=== PATIENT | female | born 1965 | race Caucasian/White ===

== ENCOUNTER → 2023-01-14 | Outpatient (CLI) | payer OTHER ==
[2023-01-14 19:03] LABS: U Amphetamine Screen Not Detected; U Barbituate Screen Not Detected; U Benzodiazapine Screen Not Detected; U Buprenorphine Screen Not Detected; U Cannabinoids Screen DETECTED; U Cocaine Screen Not Detected; U Methadone Screen Not Detected; U Methamphetamine Screen Not Detected; U Opiates Screen Not Detected; U Oxycodone Screen Not Detected; U Phencyclidine Screen Not Detected; U Propoxyphene Screen Not Detected
[2023-01-23 06:12] LABS: CARBOXY-THC 136 (.)
== END ==
LOC: LAB SHORT 13:00 → LAB 13:00
PROVIDERS: Family Medicine
DX: Z51.81 Encounter for therapeutic drug level monitoring (principal)

== ENCOUNTER → 2023-02-05 | Outpatient (CLI) | payer OTHER ==
[2023-02-10 13:09] LABS: HPV 16 Negative (Negative); HPV 18 Negative (Negative); HPV OTHER HR TYPES Negative (Negative)
== END | disposition home or self-care (01) ==
LOC: LAB SHORT 14:36 → LAB 14:36
PROVIDERS: Family Medicine
DX: Z12.4 Encounter for screening for malignant neoplasm of cervix (principal)
CPT/HCPCS: 87624; G0145

== ENCOUNTER → 2023-03-26 | Outpatient (CLI) | payer OTHER ==
[2023-03-26 10:19] LABS: Influenza A, PCR NEGATIVE (NEGATIVE); Influenza B, PCR NEGATIVE (NEGATIVE); Resp Syncytial Virus, PCR NEGATIVE (NEGATIVE)
[2023-03-26 10:44] LABS: SARS-Cov-2 (COVID-19) PCR, MMC POSITIVE (NEGATIVE)
== END | disposition home or self-care (01) ==
LOC: LAB 08:54 → LAB SHORT 08:54
PROVIDERS: Family Medicine
DX: R50.9 Fever, unspecified (principal)
CPT/HCPCS: 0241U

== ENCOUNTER 2025-01-30 06:51 | Emergency (ER) | payer BC ==
[~2025-01-30] VITALS: Ht 152.4 cm; Wt 44.9 kg
[~2025-01-30 06:51] MED LIST: Naprosyn500 MG PO; TRAM50 PO
[2025-01-30] MEDS ORDERED: Albuterol 2.5 MG/3 ML VIAL INH ONE (07:10)
[2025-01-30] MEDS ORDERED: MethylPREDNISolone Sod Succ 125 MG Vial IV ONE (07:10)
[2025-01-30 07:51] LABS: Albumin, Blood 3.3 g/dL (3.4-5.0); Albumin/Globulin Ratio 0.8 (0.8-1.8); Bilirubin, Total 0.3 mg/dL (0.1-1.0); Bun/Creatinine Ratio 12.7 (12.0-20.0); Calcium, Blood 8.9 mg/dL (8.5-10.1); Creatinine, Blood 0.55 mg/dL (0.40-1.00); Potassium, Blood 4.3 mmol/L (3.5-5.5); Total Protein, Blood 7.3 g/dL (6.4-8.2)
[2025-01-30 08:09] LABS: BASOPHILS ABSOLUTE AUTO 0.07 K/mm3 (0.00-0.23); BASOPHILS PERCENT AUTO 1 % (0-2); EOSINOPHILS PERCENT AUTO 1 % (0-6); Hematocrit 38.7 % (33.0-51.0); Hemoglobin 13.3 g/dL (11.5-16.0); IMMATURE GRAN ABSOLUTE AUTO 0.04 K/mm3 (0.00-0.10); IMMATURE GRAN PERCENT AUTO 0 % (0-1); LYMPHOCYTES PERCENT AUTO 27 % (21-46); MONOCYTES ABSOLUTE AUTO 0.42 K/mm3 (0.16-1.47); MONOCYTES PERCENT AUTO 4 % (4-13); Mean Corpuscular HGB 32.1 pg (26.0-34.0); Mean Corpuscular HGB Conc 34.4 g/dL (31.5-36.5); Mean Corpuscular Volume 94 fL (80-100); Mean Platelet Volume 8.8 fL (9.1-12.4); NEUTROPHILS ABSOLUTE AUTO 6.71 K/mm3 (1.96-9.15); NEUTROPHILS PERCENT AUTO 67 % (41-73); Platelet Count 569 K/mm3 (150-400); RDW Coefficient Variation 13.2 % (11.7-14.2); RDW Standard Deviation 45.3 fL (35.1-46.3); Red Blood Cell Count 4.14 M/mm3 (3.80-5.20); White Blood Cell Count 10.04 K/mm3 (4.00-11.30)
[2025-01-30] MEDS ORDERED: ALBU90OI INH (09:10)
[2025-01-30] MEDS ORDERED: PRED20 PO (09:10)
[2025-01-30] MEDS ORDERED: Azithromycin 250 MG Tab PO ONE (09:10)
[2025-01-30] MEDS ORDERED: AZIT250 PO (09:10)
[2025-01-30 09:15] VITALS: BP 120/87
== END 2025-01-30 09:22 | disposition home or self-care (01) ==
LOC: ER 06:51
PROVIDERS: Emergency Medicine
DX: J44.1 Chronic obstructive pulmonary disease with (acute) exacerbation (principal); Z88.2 Allergy status to sulfonamides; Z88.8 Allergy status to other drugs, medicaments and biological substances; Z79.899 Other long term (current) drug therapy; Z87.891 Personal history of nicotine dependence
CPT/HCPCS: 71045; 80053; 85025; 93005; 93010; 94640; 94664; 96374; 99285-25; A9270; J2919

== ENCOUNTER 2025-05-25 06:11 | Inpatient (IN) | payer BC ==
[~2025-05-25] VITALS: Ht 152.4 cm; Wt 36.9 kg
[~2025-05-25 06:11] MED LIST changes: +ALBU90OI INH; +AZIT250 PO; +PRED20 PO
[2025-05-25 06:39] LABS: BASOPHILS ABSOLUTE AUTO 0.03 K/mm3 (0.00-0.23); BASOPHILS PERCENT AUTO 0 % (0-2); EOSINOPHILS ABSOLUTE AUTO 0.06 K/mm3 (0.00-0.68); EOSINOPHILS PERCENT AUTO 1 % (0-6); Hematocrit 41.7 % (33.0-51.0); Hemoglobin 14.6 g/dL (11.5-16.0); IMMATURE GRAN ABSOLUTE AUTO 0.04 K/mm3 (0.00-0.10); IMMATURE GRAN PERCENT AUTO 0 % (0-1); LYMPHOCYTES ABSOLUTE AUTO 2.36 K/mm3 (0.84-5.20); LYMPHOCYTES PERCENT AUTO 22 % (21-46); MONOCYTES ABSOLUTE AUTO 0.54 K/mm3 (0.16-1.47); MONOCYTES PERCENT AUTO 5 % (4-13); Mean Corpuscular HGB Conc 35.0 g/dL (31.5-36.5); Mean Corpuscular Volume 95 fL (80-100); NEUTROPHILS ABSOLUTE AUTO 7.84 K/mm3 (1.96-9.15); NEUTROPHILS PERCENT AUTO 72 % (41-73); NRBC ABSOLUTE 0.00 K/mm3 (0.00-0.02); NRBC Auto 0.0 /100 WBC (0.0-0.2); Platelet Count 378 K/mm3 (150-400); RDW Coefficient Variation 13.0 % (11.7-14.2); RDW Standard Deviation 45.7 fL (35.1-46.3)
[2025-05-25 06:57] LABS: Alanine Aminotransfer (ALT/SGP 27.0 U/L (12-78); Albumin, Blood 3.9 g/dL (3.4-5.0); Albumin/Globulin Ratio 1.3 (0.8-1.8); Anion Gap 6.0 mmol/L (3-11); Aspartate Aminotrans (AST/SGOT 19.0 U/L (12-37); Bilirubin, Total 0.4 mg/dL (0.1-1.0); Blood Urea Nitrogen 12.0 mg/dL (8-24); CO2, Blood 27.0 mmol/L (21-32); Calcium, Blood 8.5 mg/dL (8.5-10.1); Chloride, Blood 109.0 mmol/L (98-108); Creatinine, Blood 0.47 mg/dL (0.40-1.00); Globulin, Blood 2.9 g/dL (2.2-4.0); Glucose, Blood 98.0 mg/dL (70-99); Potassium, Blood 3.7 mmol/L (3.5-5.5); Sodium, Blood 138.0 mmol/L (136-145); Total Protein, Blood 6.8 g/dL (6.4-8.2)
[2025-05-25] MEDS ORDERED: Magnesium Sulf 2 GM/Water 50ML 50 ML IV ONE (07:15)
[2025-05-25] MEDS ORDERED: Albuterol HFA200 ACT/6.7 GM INH INH PRN (09:30)
[2025-05-25] MEDS ORDERED: Pantoprazole Sodium 40 MG Injection IV SCH (10:00)
[2025-05-25 10:10] LABS: CHOL/HDL RATIO 2.8; Cholesterol 146 mg/dL (50-200); HDL Cholesterol 52 mg/dL (>39); LDL/HDL RATIO 1.4; Low Density Lipoprotein Chol 72 mg/dL (0-110); Triglycerides 112 mg/dL (30-160); Very Low Density Lipoprot Chol 22 mg/dL (6-32)
[2025-05-25] MEDS ORDERED: Mag Hydrox/Al Hydrox/Simeth 18 ML,Lidocaine 2% Viscous Soln 9 ML,Atropine/Scopalam/Hyos... PO ONE (13:25)
[2025-05-25 14:28] VITALS: BP 138/82
[2025-05-25] MEDS ORDERED: BUPRENORPHINE HC2 MG SL (15:19)
[2025-05-25] MEDS ORDERED: Acetaminophen650 M1 PO (15:20)
[2025-05-25] MEDS ORDERED: BUTRANS1 EAC9 TD (15:54)
[2025-05-25] MEDS ORDERED: Polyethylene Glycol 3350 17 gm PO SCH (16:00)
[2025-05-25 19:59] VITALS: BP 128/91
[2025-05-25] MEDS ORDERED: Mag Hydrox/Al Hydrox/Simeth 72 ML,Lidocaine 2% Viscous Soln 36 ML,Atropine/Scopalam/Hyo... PO PRN (20:30)
--- NOTE | 2025-05-25 21:03 | NUR ---
VERBAL ORDER RECEIVED FROM THE ON-CALL HOSPITALIST DR. ALVAREZ: OXYCODONE PO 5MG Q4 HRS PRN. ENTERED TO [place], SEE EMAR.
[2025-05-26] VITALS (7 sets, daily range): BP systolic 105–122; BP diastolic 67–96
--- NOTE | 2025-05-26 04:18 | NUR ---
SHIFT SUMMARY NO ACUTE EVENTS DURING THIS SHIFT. AT HS PT C/O H/A. NEW ORDER FOR PRN PO OXYCODONE 5MG RECEIVED FROM THE ON-CALL HOSPITALIST. ADMINISTERED ORDERED. NPO AFTER MIDNIGHT FOR SCHEDULED STRESS TEST TODAY. PT DENIES CP/PRESSURE OR THE BURNING SENSATION, THAT SHE HAD C/O PREVIOUSLY. TELE: SR @61 WITH INVERTED T-WAVE. CHARGE NURSE NOTIFIED. PT REPORTS CHRONIC BACK PAIN, ACTIVE ORDER OF TRAMADOL IS NOT EFFECTIVE PER PT.
[2025-05-26 04:49] LABS: Hematocrit 39.7 % (33.0-51.0); Hemoglobin 13.6 g/dL (11.5-16.0); Mean Corpuscular HGB Conc 34.3 g/dL (31.5-36.5); Mean Corpuscular Volume 97 fL (80-100); NRBC ABSOLUTE 0.00 K/mm3 (0.00-0.02); NRBC Auto 0.0 /100 WBC (0.0-0.2); Platelet Count 327 K/mm3 (150-400); RDW Coefficient Variation 13.1 % (11.7-14.2); RDW Standard Deviation 46.8 fL (35.1-46.3)
[2025-05-26 05:15] LABS: Anion Gap 8.0 mmol/L (3-11); Blood Urea Nitrogen 12.0 mg/dL (8-24); CO2, Blood 27.0 mmol/L (21-32); Calcium, Blood 8.4 mg/dL (8.5-10.1); Chloride, Blood 104.0 mmol/L (98-108); Creatinine, Blood 0.48 mg/dL (0.40-1.00); Glucose, Blood 87.0 mg/dL (70-99); Potassium, Blood 4.0 mmol/L (3.5-5.5); Sodium, Blood 135.0 mmol/L (136-145)
[2025-05-26 06:02] LABS: BAND PERCENT MAN 1 % (0-8); BASOPHILS ABSOLUTE MAN 0.00 K/mm3 (0.00-0.23); BASOPHILS PERCENT MAN 0 % (0-2); EOSINOPHILS ABSOLUTE MAN 0.36 K/mm3 (0.00-0.68); EOSINOPHILS PERCENT MAN 4 % (0-6); LYMPHOCYTES ABSOLUTE MAN 3.59 K/mm3 (0.84-5.20); LYMPHOCYTES PERCENT MAN 39 % (21-46); MONOCYTES ABSOLUTE MAN 0.55 K/mm3 (0.16-1.47); MONOCYTES PERCENT MAN 6 % (4-13); NEUTROPHILS ABSOLUTE MAN 4.69 K/mm3 (1.96-9.15); SEG NEUTROPHILS PERCENT MAN 50 % (41-73)
[2025-05-26] MEDS ORDERED: OxyCODONE 5 mg/Acetamin 325 mg TABLET PO PRN (08:50)
[2025-05-26] MEDS ORDERED: Enoxaparin 30 MG/0.3 ML SYR SC SCH (09:00)
[2025-05-26] MEDS ORDERED: Polyethylene Glycol 3350 17 gm PO ONE (16:00)
--- NOTE | 2025-05-26 18:29 | NUR ---
SHIFT SUMMARY NO ACUTE CHANGES, A/Ox4, ABLE TO MAKE NEEDS KNOWN, INDEPENDENT IN ROOM. CONTINUES TO REPORT EPIGASTRIC PAIN THAT IMPROVES WITH GI COCKTAIL. PLAN FOR EGD TOMORROW WITH BRISSA AFTER STRESS TEST IS COMPLETED. HEADACHE TREATED PER EMAR. BOWEL CARE ADMINISTERED WITH NO RESULTS. PT MAY HAVE ICE CHIPS AND WATER AFTER MIDNIGHT, NPO AFTER STRESS TEST COMPLETED. PT CURRENTLY RESTING IN BED WITH BED IN LOWEST POSITION AND CALL LIGHT WITHIN REACH.
[2025-05-27] VITALS (9 sets, daily range): BP systolic 103–168; BP diastolic 71–120
--- NOTE | 2025-05-27 04:35 | NUR ---
SHIFT SUMMARY NPO AFTER MIDNIGHT FOR TODAY'S SECOND PART OF THE STRESS TEST FOLLOWING WITH UPPER ENDOSCOPY PER DR. BETANCUR. GI COCTAIL AND 10MG PRN PERCOCET ADMINISTERED FOR C/O 8/10 MID ABDOMINAL PAIN RADIATING TO SIDES AND H/A. NO ACUTE EVENTS DURING THIS SHIFT. PT DENIES SOB, CP/PRESSURE. BED AT THE LOWEST POSITION, CALL LIGHT W/I REACH. PT IS A/O X4, ABLE TO MAKE HER NEEDS KNOWN AND COOPERATIVE WITH CARE.
[2025-05-27] MEDS ORDERED: NS 1,000 ML IV SCH (11:50)
[2025-05-27 12:47] LABS: Anti-Xa UFH, PHA Monitoring <0.10 IU/mL; Prothrombin Time Results 10.7 Sec (9.7-11.5)
[2025-05-27] MEDS ORDERED: Heparin Sodium,Porcine/0.5 NS 500 ML IV SCH (12:55)
[2025-05-27] MEDS ORDERED: Heparin Sodium 5000 Units/ML 1ML MDV IV ONE (12:55)
--- NOTE | 2025-05-27 13:01 | NUR ---
*LATE ENTRY* PT HAD CHEST PAIN- PT HAD THE SECOND PART OF HER CARDIAC STRESS TEST TODAY. AFTER THE TEST SHE HAD TO CONSUME A SNACK OF FATTY FOODS. AFTER EATING SHE C/O A SMALL AMOUNT OF ACID REFLUX. SHE WAS TAKEN DOWN FOR THE IMAGES, WHEN SHE ARRIVED BACK IN THE ROOM SHE C/O 10/10 CHEST PAIN. RN MARGARET AND SANDRO ALBA WELL NATHAN ALEXANDER ALL RESPONDED VITALS CHECKED DR WEINBERG NOTIFIED (CALLED CELL LEFT MESSAGE), EKG COMPLETED. DR WEINBERG CAME TO THE BEDSIDE, PT STATES THE PAIN IS DOWN 12/21. PT NOW C/O HEADACHE WELL 4/[address] ABOUT WHAT TO GIVE, ORDER TO GIVE THE GI COCKTAIL ( IT HAS BEEN HELPING) AND PERCOCET FOR THE HEADACHE. NO TYLENOL IN THE EMAR, NO NITRO AT THIS TIME IN EMAR. DR REQUESTED A STAT READ ON THE STRESS TEST. RECIEVED A CALL FROM IMAGING THE RADIOLOGIST IS ATTEMPTING TO CALL THE DR AND THEY WOULD LIKE A CALL BACK QUITA. CALLED DR WEINBERG AND PASSED ON THAT THE RADIOLOLGIST IS CALLING HER TO TALK ABOUT THE TEST RESULTS FOR THIS PT. MEDS GIVEN REQUESTED BY . DR WEINBERG CAME TO SEE THE PT AND SPOKE TO HER ABOUT HER TEST RESULTS. LEFT AC IV WAS BLEEDING AT THE INSERTION AND LEAKING WHEN FLUSHED. DRESSING CHANGED FLUSHES WELL, PT STATES SHE CAN TASTE THE FLUSH WHEN IT IS FLUSHED, STILL A LITTLE LEAKY AFTER THE DRESSING CHANGE, NO FURTHER BLEEDING AT THE SITE. PT STATES SHE HAS TO GO PEE NOW AND WALKED INTO THE BATHROOM. RECIEVED A CALL FROM TELE PT HR NOW 130'S AND SUSTAINING. WALKED IN TO THE ROOM PT SITTING UP IN THE BED A LITTLE FLUSHED, ASKED HER HOW SHE WAS FEELING AND SHE PLACED HER HAND ON HER CHEST STATING "OH, THE PAIN IS COMING BACK!" SHE WAS BREATHIG RAPIDLY. VS CHECKED PLACED ON O2 VIA NC AT 2L DESPITE SATS 100%. INSTRUMENT WORKER ARRIVED AT THE BEDSIDE. CP 06/22. ORDER FOR ANOTHER EKG, SL NITRO ORDERED. VS ARE ELEVATED. HR STILL 130'S SBP 160'S. NITRO PULLED ON OVERRIDE, AND FIRST DOSE GIVEN AT 1125. EKG MACHINE NOT ALLOWING THE TEST. WENDY NGUYEN CAME FROM U AND WAS ABLE TO OBTAIN THE EKG. PT BOYFRIEND ARRIVED AT THE BEDSIDE, CARDIOLOGY SPOKE TO THE PT AND HER SO ABOUT THE PLAN FOR NURSE RECRUITER TOMORROW. CP RESOLVED COMPLETELY BY 1130 NO ADITIONAL DOSE NEEDED. PER CARDIOLOGY THE PT NEEDS TRANSFER TO PCU, SANDRO NGUYEN AWARE BED ASSIGNMENT RECIEVED, PT TO TRANSFER TO PCU3. TELEPHONE REPORT COMPLETED WITH DATA ANALYTICS ARCHITECTSANDRO CERVANTES. PT ON 2L VIA NC, AT THE TIME OF TRANSFER TO PCU THE PT NO LONGER HAD ANY S&S OF DISTRESS NOTED. ESTIMATOR PAPERBOARD BOXESSANDRO ALBA AND NATHAN AELXANDER TRANSFERED THE PT IN THE BED TO PCU 3.
[2025-05-27] MEDS ORDERED: Nitroglycerin 1 INCH/GM PKT TOP SCH (14:00)
--- NOTE | 2025-05-27 18:42 | NUR ---
SHIFT SUMMARY: NEURO: PATIENT ALERT AND ORIENTED X4. PATIENT DENIED NUMBNESS/TINGLING THROUGHOUT THE SHIFT. PATIENT HAS EQUAL STRENGTH ACROSS EXTREMITIES. PATIENT STEADY WITH STANDING. PATIENT HAD A SEVERE HEADACHE FOR MOST OF THE AFTERNOON AND EVENING. PATIENT REPORTS THAT SHE BELIEVES THIS IS RELATED TO HER OSTEOARTHRITIS. THIS RESOLVED AROUND 17:30. CARDIAC: PATIENT ARRIVED TO UNIT FOR CLOSER MONITORING POST CARDIAC EVENTS AT HOME AND UP ON THE MEDICAL UNIT. HR FOR THE AFTERNOON IN THE 60S-70S. PATIENT TOLERATED NITRO PATCH WITHOUT DEVELOPING HYPOTENSION. PATIENT DENIED CHEST PAIN AND/OR DISCOMFORT THROUGHOUT THE SHIFT. SBP IN THE 100S-110S. MAPS >65. NO CHANGES TO TELEMETRY DURING THE SHIFT. RESPIRATORY: PATIENT STABLE ON ROOM AIR. SPO2 >96%. NO SHORTNESS OF BREATH NOTED WITH REST OR ACTIVITY. DISCUSSED WITH DR. WEINBERG AND OBTAINED AN ORDER FOR A NICOTINE PATCH. GI/: PATIENT VOIDING WITHOUT DIFFICULTY. PATIENT DENIED NAUSEA OR GASTRIC UPSET. PATIENT TOLERATING PO INTAKE WITHOUT DISCOMFORT. DR. BRUMFIELD NOTIFIED OF ABNORMAL STRESS TEST AND NEED TO GO TO THE RELATIONS SPECIALIST TOMORROW. PSYCHSOCIAL: PATIENT CALM AND COOPERATIVE. VISITED BY SO AND FRIENDS THIS AFTERNOON. PATIENT REPORTS UNDERSTANDING OF NEED FOR THE PROCEDURE. REPORTS THAT THIS AFTERNOON REALLY SCARED HER.
[2025-05-27] MEDS ORDERED: Clarify Drug Order XX ONE (20:30)
[2025-05-28] VITALS (7 sets, daily range): BP systolic 103–133; BP diastolic 64–106
[2025-05-28 02:21] LABS: Hematocrit 38.3 % (33.0-51.0); Hemoglobin 13.0 g/dL (11.5-16.0); Platelet Count 309 K/mm3 (150-400)
[2025-05-28] MEDS ORDERED: Dose Adjust by Pharmacy XX STA (03:02)
--- NOTE | 2025-05-28 06:59 | NUR ---
SHIFT SUMMARY: PT IS A&OX4, PLEASANT AND COOPERATIVE WITH CARE. PT IS ANXIOUS ABOUT THE FINDINGS THAT THIS IS MORE CARDIAC RELATED RATHER THAN EPIGASTRIC PAIN. VSS ON RA. SB-SR 50'S-70'S WITH INVERTED T WAVE. HEPARIN GTT TITRATED PER ORDER. C/O 7/10 PAIN TO HER NECK AND A MIGUEL, MEDICATED PER EMAR. TOLERATING A HEART HEALTHY DIET, NPO AFTER MN FOR A PROCEDURE TODAY. PT IS SBA TO THE BSC FOR LINE MANAGEMENT. VOIDING LARGE AMOUNTS OF CLEAR, PALE COLORED URINE. NO BM THIS SHIFT. EDUCATED PT ON THE IMPORTANCE OF SMOKING CESSATION, SHE IS RECEPTIVE TO THIS. REPOSITIONS HERSELF IN BED. BED IN LOWEST POSITION, CALL LIGHT WITHIN REACH. CALLS APPROPRIATELY AND IS ABLE TO ADVOCATE NEEDS EFFECTIVELY.
[2025-05-28] MEDS ORDERED: Heparin Sodium 1000 Units/ML 10ML MDV ONE (14:04)
[2025-05-28] MEDS ORDERED: Verapamil HCL 2.5 MG/ML 2ML Injection ONE (14:04)
[2025-05-28] MEDS ORDERED: NS 250 ML IV ONE (14:04)
[2025-05-28] MEDS ORDERED: NS 1,000 ML IV ONE ×2 (14:04→14:32)
[2025-05-28] MEDS ORDERED: Nitroglycerin 2 MG/20 ML BTL ONE (14:06)
[2025-05-28] MEDS ORDERED: FentaNYL Citrate 50 MCG/ML 2 ML Injection ONE (14:32)
[2025-05-28] MEDS ORDERED: Midazolam HCl 1MG / ML 2ML Vial ONE (14:32)
--- NOTE | 2025-05-28 18:14 | NUR ---
End of shift note. Pt was anxiously waiting for her angio this shift. Pt has denied chest pain so far this shift. Angio completed this afternoon, no interventions completed. TR band is deflated and needs to have band removed this evening. Multiple visitors throughout the day. Pt has made many comments about how she is ready to go home. Significant amount of education given about the importance of being in the hospital. Pt to stay overnight and have more GI workup tomorrow. Hospitalist came to see Pt this afternoon for an update, Pt is agreeable to staying. Pt is able to make needs known. Call light is within reach.
[2025-05-28 19:01] LABS: Thyroid Stimulating Hormone 7.5 uIU/mL (0.360-4.800)
[2025-05-29] VITALS (20 sets, daily range): BP systolic 80–147; BP diastolic 57–110
[2025-05-29 05:43] LABS: BASOPHILS ABSOLUTE AUTO 0.06 K/mm3 (0.00-0.23); BASOPHILS PERCENT AUTO 1 % (0-2); EOSINOPHILS ABSOLUTE AUTO 0.15 K/mm3 (0.00-0.68); EOSINOPHILS PERCENT AUTO 2 % (0-6); Hematocrit 37.3 % (33.0-51.0); Hemoglobin 12.9 g/dL (11.5-16.0); IMMATURE GRAN ABSOLUTE AUTO 0.02 K/mm3 (0.00-0.10); IMMATURE GRAN PERCENT AUTO 0 % (0-1); LYMPHOCYTES ABSOLUTE AUTO 3.03 K/mm3 (0.84-5.20); LYMPHOCYTES PERCENT AUTO 35 % (21-46); MONOCYTES ABSOLUTE AUTO 0.54 K/mm3 (0.16-1.47); MONOCYTES PERCENT AUTO 6 % (4-13); Mean Corpuscular HGB Conc 34.6 g/dL (31.5-36.5); Mean Corpuscular Volume 98 fL (80-100); NEUTROPHILS ABSOLUTE AUTO 4.84 K/mm3 (1.96-9.15); NEUTROPHILS PERCENT AUTO 56 % (41-73); NRBC ABSOLUTE 0.00 K/mm3 (0.00-0.02); NRBC Auto 0.0 /100 WBC (0.0-0.2); Platelet Count 302 K/mm3 (150-400); RDW Coefficient Variation 13.0 % (11.7-14.2); RDW Standard Deviation 46.5 fL (35.1-46.3)
[2025-05-29 06:20] LABS: Anion Gap 9.0 mmol/L (3-11); Blood Urea Nitrogen 14.0 mg/dL (8-24); CO2, Blood 25.0 mmol/L (21-32); Calcium, Blood 8.5 mg/dL (8.5-10.1); Chloride, Blood 107.0 mmol/L (98-108); Creatinine, Blood 0.57 mg/dL (0.40-1.00); Glucose, Blood 88.0 mg/dL (70-99); Potassium, Blood 3.8 mmol/L (3.5-5.5); Sodium, Blood 137.0 mmol/L (136-145)
--- NOTE | 2025-05-29 06:45 | NUR ---
SHIFT SUMMARY: PT IS A&OX4, PLEASANT AND COOPERATIVE WITH CARE. VSS ON RA. SR 60'S-70'S WITH INVERTED T WAVE. C/O 7/10 PAIN TO HER NECK AND R RADIAL ACCESS SITE, MEDICATED PER EMAR. TR BAND OFF AT 1950. AROUND ACCESS SITE IS TENDER, NO SWELLING/HEMATOMA PRESENT. DRESSING REMAINS C/D/I, ARMBOARD REMAINS IN PLACE. TOLERATING A HEART HEALTHY DIET, H2O ONLY AFTER MN AND NPO AFTER 0800 FOR AN EGD TODAY. PT IS INDEPENDENT TO THE BATHROOM. VOIDING LARGE AMOUNTS OF CLEAR, PALE COLORED URINE. NO BM THIS SHIFT. REPOSITIONS HERSELF IN BED. BED IN LOWEST POSITION, CALL LIGHT WITHIN REACH. CALLS APPROPRIATELY AND IS ABLE TO ADVOCATE NEEDS EFFECTIVELY. PT IS REALLY HOPING TO GO HOME TODAY AFTER HER EGD.
[2025-05-29] MEDS ORDERED: HYDROmorphone HCl/Pf 1MG SYR IV PRN (09:50)
--- NOTE | 2025-05-29 11:09 | NUR ---
PT HAS 20G IV TO RIGHT AC THAT FLUSHES WELL AND FLOWS TO GRAVITY. PT ALSO HAS 22G IV TO LEFT FOREARM THAT FLUSHES WELL.
[2025-05-29] MEDS ORDERED: Benzocaine Oral Spray 0.5ML UD ONE (11:15)
--- NOTE | 2025-05-29 11:18 | NUR ---
Pt brought via WC from PCU to Day Surgery for procedure with Dr. Tarango. History, Chart, Medications and Allergies reviewed before start of procedure. Patient confirms NPO status and agrees with scheduled surgery. Pre-Op teaching done. Pt verbalizes understanding. Pt belongings left in personal room in PCU. Pt has glasses, top/bottom dentures, and a left hearing aid that will be removed in the Endo Room prior to start of procedure. Pt has rings on bilat hands that cannot be removed, Endo team aware.
--- NOTE | 2025-05-29 11:34 | NUR ---
05/29/25 1134 Nacho Pham CONFIRMED AND REVIEWED H&P, MEDCICATIONS, ALLERGIES, MEDICAL HISTORY, RESPIRATORY HISTORY, VITAL SIGNS, 3-LEAD EKG, CONSENTS, AND PHYSICIAN ORDERS. PATIENT CONFIRMS NPO STATUS AND AGREES WITH SCHEDULED PROCEDURE. MONITOR INTACT WITH CONTINUOUS PULSE OXIMETRY, CAPNOGRAPHY, 3-LEAD EKG, INTERMITTENT BP. SUPPLEMENTAL O2 TO BE TITRATED THROUGHOUT PROCEDURE TO MAINTAIN O2 SATURATION ABOVE 90%. PATIENT DETERMINED TO BE ASA APPROPRIATE FOR PROPOFOL SEDATION PRIOR TO START OF PROCEDURE BY DR. BRUMFIELD.
[2025-05-29] MEDS ORDERED: ATOR40TA PO (14:07)
[2025-05-29] MEDS ORDERED: OXYC5 PO (14:08)
[2025-05-29] MEDS ORDERED: PANT40 PO (14:09)
--- NOTE | 2025-05-29 14:41 | NUR ---
SHIFT SUMMARY/ DISCHARGE PT A&OX4, FOLLOWING COMMANDS, AMBULATING WITHOUT ASSISTANCE. DENIES CP/ SOB. EGD COMPLETED THIS AM. TOLERATING PO INTAKE WELL. VSS. MEDICATIONS FAXED TO [facility].
== END 2025-05-29 14:30 | disposition home or self-care (01) | DRG 287 ==
LOC: ER 06:11 → PCU 06:12 → MEDS 06:12 → ERHOLD 06:12 → PCU 06:12 → MEDS 14:23 → PCU 05-27 11:59
PROVIDERS: Internal Medicine Cardiovascular Disease; Student in an Organized Health Care Education/Training Program; ADMIT Internal Medicine
PROC: 4A023N7 Measurement of Cardiac Sampling and Pressure, Left Heart, Percutaneous Approach (ICD-10-PCS; principal; 2025-05-28)
PROC: B2111ZZ Fluoroscopy of Multiple Coronary Arteries using Low Osmolar Contrast (ICD-10-PCS; 2025-05-28)
PROC: B34HZZZ Ultrasonography of Right Upper Extremity Arteries (ICD-10-PCS; 2025-05-28)
PROC: 0DB68ZX Excision of Stomach, Via Natural or Artificial Opening Endoscopic, Diagnostic (ICD-10-PCS; 2025-05-29)
PROC: 0DB98ZX Excision of Duodenum, Via Natural or Artificial Opening Endoscopic, Diagnostic (ICD-10-PCS; 2025-05-29)
DX: I25.110 Atherosclerotic heart disease of native coronary artery with unstable angina pectoris (principal); Z68.1 Body mass index [BMI] 19.9 or less, adult; M54.2 Cervicalgia; M54.50 Low back pain, unspecified; F17.210 Nicotine dependence, cigarettes, uncomplicated; F12.90 Cannabis use, unspecified, uncomplicated; R10.13 Epigastric pain; R54 Age-related physical debility; K59.00 Constipation, unspecified; J44.9 Chronic obstructive pulmonary disease, unspecified; G89.4 Chronic pain syndrome; R63.4 Abnormal weight loss; Z60.2 Problems related to living alone; Z98.891 History of uterine scar from previous surgery; Z88.2 Allergy status to sulfonamides; Z88.8 Allergy status to other drugs, medicaments and biological substances; Z79.899 Other long term (current) drug therapy
CPT/HCPCS: 36415; 71046; 71275; 74174; 76937; 78452; 80048; 80053; 80061; 83036; 83605; 83690; 83735; 84439; 84443; 84481; 84484; 85014; 85018; 85025; 85049; 85347; 85520; 85610; 85730; 88305; 88342; 93005; 93010; 93017; 93306; 93458; 93571; 94760; 96365; 96366; 96375; 96376; 99152; 99153; 99285-25; A9270; A9500; C1769; C1887; C1894; G0378; J0706; J1171; J1644; J2250; J2470; J2704; J2785; J3010; J3475; J7030; J7050; J7120; Q9967